=== PATIENT | male | born 1950 | race Caucasian/White ===

== ENCOUNTER 2020-01-26 16:14 | Observation (INO) | payer MEDICARE ==
[~2020-01-26] VITALS: Ht 172.7 cm; Wt 98.4 kg
--- NOTE | 2020-01-26 16:46 | Emergency Department Note ---
History of Present Illnes History of Present Illness Chief Complaint: Abdominal Complaints History of Present Illness This is a 69 year old male arrives to the ED with complaints of dark stools, and low blood pressure per his PCP Dr. Mendieta. Patient states this has happened to him before, however, never required a blood transfusion. Patient states his last colonoscopy was a year and half ago unaware of findings. Patient denies any pain findings currently. Patient states he had a guaiac done at Dr. Kay office that was positive for blood. Historian: Patient Arrival Mode: Car Ad Clerk Required: No Onset (how long ago): day(s) Radiation: non-radiation Severity: mild Duration (how long): day(s) Chronicity: recurrent Context: recent illness, recent surgery Relieving factors: none Exacerbating factors: none (AYDEN ORTIZ DO) Past Medical/Family History Physician Review I have reviewed the patient's past medical and family history. Any updates have been documented here. (AYDEN ORTIZ DO) Past Medical History Recent Fever: No Clinical Suspicion of Infectio: No New/Unexplained Change in Ment: No Past Medical History: Hypertension, COPD, Anemia, Hyperlipedemia, Chronic Back Pain, Osteoarthritis Past Surgical History: T&A Other Surgery: HEMMORHOIDECTOMY (AYDEN ORTIZ DO) Family History Family history of heart diseas: No (AYDEN ORTIZ DO) Other Last Tetanus: UNKNOWN (AYDEN ORTIZ DO) Review of Systems Review of Systems Constitutional: no symptoms EENTM: no symptoms Cardiovascular: no symptoms Respiratory: no symptoms Gastrointestinal: other (dark stools) Genitourinary: no symptoms Musculoskeletal: no symptoms Neurological: no symptoms Psychological: no symptoms Endocrine: no symptoms Hematological/Lymphatic: no symptoms Review of other systems All other systems reviewed and negative. (AYDEN ORTIZ DO) Physical Exam Related Data Allergies: Coded Allergies: doxycycline (Verified Allergy, Severe, 01/26/20) Triage Vital Signs Vital Signs Date Time Temp Pulse Resp B/P (MAP) Pulse Ox O2 Delivery O2 Flow Rate FiO2 01/26/20 16:32 98.9 52 16 106/67 97 Vital signs reviewed: Yes (AYDEN ORTIZ DO) Physical Exam CONSTITUTIONAL Constitutional: well-developed, well-nourished HENT HENT: normocephalic, atraumatic, oropharynx clear/moist, nose normal HENT L/R: left ext ear normal, right ext ear normal EYES Eyes: PERRL, conjunctivae normal NECK Neck: ROM normal PULMONARY Pulmonary: effort normal, breath sounds normal CARDIOVASCULAR Cardiovascular: regular rhythm, heart sounds normal, capillary refill normal, normal rate GASTROINTESTINAL Abdominal: soft, nontender, bowel sounds normal GENITOURINARY Genitourinary: exam deferred SKIN Skin: warm, dry MUSCULOSKELETAL Musculoskeletal: ROM normal NEUROLOGICAL Neurological: alert, oriented x 3, no gross motor or sensory deficits PSYCHOLOGICAL Psychological: mood/affect normal, judgement normal (SANDHIR, AMBICA, DO) Results Laboratory Lab results reviewed: Yes Laboratory comments Laboratory Tests Test 01/26/20 16:40 White Blood Count 8.29 x10e3/uL (4.8-10.8) Red Blood Count 3.81 x10e6/uL (4.3-5.7) Hemoglobin 11.9 g/dL (14.0-18.0) Hematocrit 37.2 % (38.2-49.6) Mean Corpuscular Volume 97.6 fL (81-99) Mean Corpuscular Hemoglobin 31.2 pg (28-32) Mean Corpuscular Hemoglobin Concent 32.0 g/dL (31-35) Red Cell Distribution Width 13.2 % (11.7-14.4) Platelet Count 149 x10e3/uL (140-360) Neutrophils (%) (Auto) 66.2 % (38.7-80.0) Lymphocytes (%) (Auto) 23.0 % (18.0-39.1) Monocytes (%) (Auto) 7.1 % (4.4-11.3) Eosinophils (%) (Auto) 2.8 % (0.0-6.0) Basophils (%) (Auto) 0.4 % (0.0-1.0) Neutrophils # (Auto) 5.5 (2.1-6.9) Lymphocytes # (Auto) 1.9 (1.0-3.2) Monocytes # (Auto) 0.6 (0.2-0.8) Eosinophils # (Auto) 0.2 (0.0-0.4) Basophils # (Auto) 0.0 (0.0-0.1) Absolute Immature Granulocyte (auto 0.04 x10e3/uL (0-0.1) Sodium Level 141 mmol/L (136-145) Potassium Level 4.6 mmol/L (3.5-5.1) Chloride Level 108 mmol/L (98-107) Carbon Dioxide Level 25 mmol/L (22-29) Anion Gap 12.6 mmol/L (8-16) Blood Urea Nitrogen 40 mg/dL (7-26) Creatinine 2.79 mg/dL (0.72-1.25) Estimat Glomerular Filtration Rate 23 ML/MIN (60-) BUN/Creatinine Ratio 14 (6-25) Glucose Level 72 mg/dL (74-118) Calcium Level 9.1 mg/dL (8.4-10.2) Total Bilirubin 0.4 mg/dL (0.2-1.2) Aspartate Amino Transf (AST/SGOT) 15 IU/L (5-34) Alanine Aminotransferase (ALT/SGPT) 12 IU/L (0-55) Alkaline Phosphatase 76 IU/L (40-150) Creatine Kinase 119 IU/L (30-200) Creatine Kinase MB 2.60 ng/mL (0-5.0) Troponin I 0.005 ng/mL (0-0.300) Total Protein 7.1 g/dL (6.5-8.1) Albumin 4.0 g/dL (3.5-5.0) Globulin 3.1 g/dL (2.3-3.5) Albumin/Globulin Ratio 1.3 (0.8-2.0) (AYDEN ORTIZ, ) Procedures 12 Lead ECG Interpretation Ad Clerk: Interpreted by ED physician Prior RADIATION CONTROL WORKER tracings: reviewed Rhythm: sinus tachycardia QRS axis: normal ST segments normal: Yes Clinical Impression: normal ECG (AYDEN ORTIZ, ) Critical Care Time Subsequent provider I assumed direction of critical care for this patient from another provider of my specialty. (AYDEN ORTIZ, ) Assessment & Plan Assessment & Plan Final Impression: (1) ENCOUNTER FOR SCREENING FOR LOWER GASTROINTESTINAL DISORDER Assessment & Plan CBC, CMP Type and cross Admission for repeat hemoglobin/hematocrit GI consult Patient signed out to Dr. Browning. CT abdomen and pelvis (AYDEN ORTIZ, ) Assessment & Plan 1. Colonic diverticulosis without acute diverticulitis. 2. Focal luminal narrowing with mild soft tissue prominence in a short segment of the sigmoid colon may be related to underdistention and adherent stool, however, consider correlation with direct visualization (colonoscopy). 3. Bilateral renal cysts. 4. Mild aneurysmal dilatation of the proximal abdominal aorta at the level of the hiatus. Signed by: Dr. Elian Luciano M.D. on 01/26/2020 8:40 PM (BECCA GOLDMAN MD) Depart Disposition: ADMITTED Last Vital Signs Date Time Temp Pulse Resp B/P (MAP) Pulse Ox O2 Delivery O2 Flow Rate FiO2 01/26/20 16:32 98.9 52 16 106/67 97 (AYDEN ORTIZ, ) AYDEN ORTIZ DO Jan 26, 2020 16:46 BECCA GOLDMAN MD Jan 26, 2020 20:56
[2020-01-26 17:02] LABS: BASOPHILS % 0.4 % (0.0-1.0); EOSINOPHILS # (AUTO) 0.2 (0.0-0.4); EOSINOPHILS % 2.8 % (0.0-6.0); HEMATOCRIT 37.2 % (38.2-49.6); HEMOGLOBIN 11.9 g/dL (14.0-18.0); LYMPHOCYTES # (AUTO) 1.9 (1.0-3.2); MEAN CORPUSCULAR HEMOGLOBIN 31.2 pg (28-32); MEAN CORPUSCULAR VOLUME 97.6 fL (81-99); MONOCYTES # (AUTO) 0.6 (0.2-0.8); MONOCYTES % 7.1 % (4.4-11.3); NEUTROPHILS # (AUTO) 5.5 (2.1-6.9); NEUTROPHILS % 66.2 % (38.7-80.0); PLATELET COUNT 149 x10e3/uL (140-360); RED BLOOD COUNT 3.81 x10e6/uL (4.3-5.7); RED CELL DISTRIBUTION WIDTH 13.2 % (11.7-14.4)
[2020-01-26 17:21] LABS: ALBUMIN/GLOBULIN RATIO 1.3 (0.8-2.0); ANION GAP 12.6 mmol/L (8-16); CALCIUM 9.1 mg/dL (8.4-10.2); CREATININE, SERUM 2.79 mg/dL (0.72-1.25); POTASSIUM 4.6 mmol/L (3.5-5.1)
[2020-01-26 17:27] LABS: CREATINE KINASE MB 2.6 ng/mL (0-5.0)
[2020-01-26] MEDS ORDERED: SODIUM CHLORIDE 0.9% 1000ML 1,000 ML IV STA (18:37)
[2020-01-26] MEDS ORDERED: OCTREOTIDE ACETATE 0.05 MG/ML AMP IV ONE (18:45)
[2020-01-26] MEDS ORDERED: OCTREOTIDE ACETATE 500 MCG in SODIUM CHLORIDE 0.9% 250ML 249 ML IV ONE (18:45)
--- NOTE | 2020-01-26 19:03 | NUR ---
Seen pt on bed AAOx4, VSS. Ironworker Foreman at bedside to take pt for CT scan procedure.
--- NOTE | 2020-01-26 20:43 | Diagnostic Imaging Report ---
EXAM: CT Abdomen and Pelvis WITHOUT contrast INDICATION: Gastrointestinal bleed. Hypotension. COMPARISON: None. TECHNIQUE: Abdomen and pelvis were scanned utilizing a multidetector helical scanner from the lung base to the pubic symphysis without administration of IV contrast. Absence of intravenous contrast decreases sensitivity for detection of focal lesions and vascular pathology. Coronal and sagittal reformations were obtained. Routine protocol was performed. IV CONTRAST: None. ORAL CONTRAST: None. RADIATION DOSE: Total DLP: 692.31 mGy*cm Estimated effective dose: (DLP x 0.015 x size factor) mSv COMPLICATIONS: None FINDINGS: LINES and TUBES: None. LOWER THORAX: Left basilar subsegmental atelectasis. HEPATOBILIARY: No focal hepatic lesions. No biliary ductal dilation. GALLBLADDER: No radio-opaque stones or sludge. No wall thickening. SPLEEN: No splenomegaly. PANCREAS: No focal masses or ductal dilatation. ADRENALS: No adrenal nodules KIDNEYS/URETERS: No hydronephrosis. 6.6 cm cyst exophytic of the posterior lower pole of the left kidney. 2.1 cm parapelvic cyst in the lower pole of the right kidney on image 32. 1.0 cm cyst exophytic of the lower pole of the right kidney. No stones. GI TRACT: No abnormal distention to suggest bowel obstruction. There are diverticula within the colon without evidence of diverticulitis. There is focal luminal narrowing with mild soft tissue prominence in a short segment of the sigmoid colon as seen on image 46 series 2 which may be related to underdistention and adherent stool, however, consider correlation with direct visualization (colonoscopy). Appendix is normal. PELVIC ORGANS/BLADDER: 5.2 cm prostate is mildly enlarged, and contains coarse calcifications. LYMPH NODES: No lymphadenopathy. VESSELS: There is moderate atherosclerotic disease in the aorta and major arterial branches. Mild aneurysmal dilatation of the aorta at the level of the hiatus measuring 3.3 cm on image 16 series 2. PERITONEUM / RETROPERITONEUM: No free air or fluid. BONES: There are degenerative changes in the lumbar spine with multilevel lower thoracic and upper lumbar Schmorl nodes.. SOFT TISSUES: Unremarkable. IMPRESSION: 1. Colonic diverticulosis without acute diverticulitis. 2. Focal luminal narrowing with mild soft tissue prominence in a short segment of the sigmoid colon may be related to underdistention and adherent stool, however, consider correlation with direct visualization (colonoscopy). 3. Bilateral renal cysts. 4. Mild aneurysmal dilatation of the proximal abdominal aorta at the level of the hiatus. Signed by: Dr. Elian Luciano M.D. on 01/26/2020 8:40 PM
[2020-01-26 22:43] VITALS: BP 151/78
[2020-01-26 23:00] VITALS: BP 151/78
[2020-01-26 23:22] VITALS: BP 151/78
[2020-01-27] VITALS: BP 137/66
[2020-01-27] MEDS ORDERED: PROAIR HFA INH8.5 GM INH (00:50)
[2020-01-27 04:00] VITALS: BP 148/73
[2020-01-27] MEDS ORDERED: ANORO ELLIPTA1 EACH INH (04:57)
--- NOTE | 2020-01-27 06:04 | NUR ---
SPOKE TO DR. NI AT THIS TIME REGARDING PATIENT C/O HEADACHE, NAUSEA AND VOMITING. NEW ORDERS RECEIVED FOR TYLENOL 650 PO Q6H PRN, ZOFRAN 4MG IV Q6H PRN, CBC AND BMP.
[2020-01-27] MEDS: ONDANSETRON HCL INJ 2MG/ML 2ML 2 MG/ML VIAL IV PRN ×2 (06:20→09:13)
[2020-01-27] MEDS: ACETAMINOPHEN 325 MG TAB PO PRN ×2 (06:45→09:13)
[2020-01-27 07:41] LABS: BASOPHILS # (AUTO) 0.1 (0.0-0.1); BASOPHILS % 0.6 % (0.0-1.0); EOSINOPHILS # (AUTO) 0.1 (0.0-0.4); EOSINOPHILS % 1.1 % (0.0-6.0); HEMATOCRIT 40.4 % (38.2-49.6); LYMPHOCYTES # (AUTO) 1.3 (1.0-3.2); LYMPHOCYTES % 14.4 % (18.0-39.1); MEAN CORPUSCULAR HEMOGLOBIN 31.2 pg (28-32); MEAN CORPUSCULAR HGB CONC 32.2 g/dL (31-35); MEAN CORPUSCULAR VOLUME 96.9 fL (81-99); MONOCYTES # (AUTO) 0.4 (0.2-0.8); MONOCYTES % 4.4 % (4.4-11.3); NEUTROPHILS # (AUTO) 6.9 (2.1-6.9); NEUTROPHILS % 78.8 % (38.7-80.0); PLATELET COUNT 147 x10e3/uL (140-360); RED BLOOD COUNT 4.17 x10e6/uL (4.3-5.7); RED CELL DISTRIBUTION WIDTH 12.7 % (11.7-14.4)
[2020-01-27 08:00] LABS: CALCIUM 9.4 mg/dL (8.4-10.2); CREATININE, SERUM 2.25 mg/dL (0.72-1.25)
[2020-01-27 08:31] VITALS: BP 177/95
[2020-01-27 08:55] VITALS: BP 138/73
[2020-01-27] MEDS ORDERED: PANTOPRAZOLE 40 MG 10ML VIAL IV SCH (09:00)
[2020-01-27] MEDS ORDERED: SOD POLYSTYRENE SULFONATE SUSP 15 GM/60 ML BTL PO ONE (10:00)
[2020-01-27] MEDS ORDERED: SODIUM CHLORIDE 0.9% 1000ML 1,000 ML IV SCH (13:00)
[2020-01-27] MEDS ORDERED: ALBUTEROL SULFATE HFA 8GM INHALATION AEROSOL INH PRN (13:00)
[2020-01-27 13:06] VITALS: BP 171/91
[2020-01-27] MEDS ORDERED: CLONIDINE HCL 0.1 MG TAB PO PRN (13:15)
--- NOTE | 2020-01-27 14:00 | NUR ---
pt had bm. no blood visible in stool.
[2020-01-27 14:17] LABS: ANION GAP 13.9 mmol/L (8-16); CALCIUM 9.1 mg/dL (8.4-10.2); CREATININE, SERUM 2.09 mg/dL (0.72-1.25); POTASSIUM 4.9 mmol/L (3.5-5.1)
--- NOTE | 2020-01-27 23:20 | History and Physical ---
PRIMARY CARE PHYSICIAN: Dr. Mendieta with [facility]. CHIEF COMPLAINT: Dark stool. HISTORY OF PRESENT ILLNESS: This is a 69-year-old male with past medical history of hypertension, high cholesterol, and chronic pain, presented to the ER with complaints of dark stools. He denies any chest pain, shortness of breath, weakness. He reports had gone to see a primary care doctor for dark stool. His stool was a little occult, was positive in office, and his blood pressure was low, so he was sent to the ER for further evaluation. He upon arrival to the ER, hemoglobin was 11.9, asymptomatic. No abdominal pain, was admitted under observation for further evaluation. He reports, he had a colonoscopy a few years ago, which showed some polyps and was removed and reports he has a colonoscopy is scheduled to be done this month. In the ER, CT of abdomen and pelvis showed colonic diverticulosis with without acute diverticulitis, bilateral renal cyst, and mild aneurysm dilation of the proximal abdominal aorta at the level of the hiatus. PAST MEDICAL HISTORY: 1. Hypertension. 2. High cholesterol. 3. Arthritis. PAST SURGICAL HISTORY: Hemorrhoidectomy 15 years ago and tonsillectomy. FAMILY MEDICAL HISTORY: Denies any family history. SOCIAL HISTORY: He reports smoking a pack per two days. He drinks alcohol occasionally and denies illicit drug use. ALLERGIES: DOXYCYCLINE. REVIEW OF SYSTEMS: GENERAL: No weakness. LUNGS: No shortness of breath. No cough. CARDIOVASCULAR: No chest pain. GI: No nausea, vomiting, constipation or diarrhea. NEURO: No dizziness. MUSCULOSKELETAL: No edema. SKIN: No rash. PHYSICAL EXAMINATION: VITAL SIGNS: Temperature 97.7, pulse is 71, respirations 17, blood pressure 171/91, pulse ox is 98% on room air. GENERAL: No acute distress. HEENT: Normocephalic, atraumatic. NECK: Supple. LUNGS: Clear to auscultation. CARDIOVASCULAR: Regular rate and rhythm. GI: Soft and nontender. NEUROLOGIC: Alert, awake, and oriented x3. MUSCULOSKELETAL: Moves all extremities. SKIN: Dry. PSYCH: Calm. LABORATORY DATA: WBC 8.29, hemoglobin 13, hematocrit 40, and platelet 141. Sodium 141, potassium 4.6, BUN 40, creatinine 2.79, estimated GFR 23, glucose 72, AST 15, ALT 12, CK 119. IMAGING: CT abdomen and pelvis chronic diverticulosis without acute diverticulitis and bilateral renal cysts as mentioned in the HPI. IMPRESSION AND PLAN: 1. Dark stool, likely due to GI bleed. Hemoglobin is stable at 13.0. No diverticulitis on CT. No abdominal pain or overt bleeding. We will follow up outpatient for further GI workup. 2. Acute kidney injury versus chronic kidney injury. 3. Creatinine improved with IV fluid hydration to 2.09 today. Reports had renal ultrasound with PCP sometime ago, which he was told will be monitored. He is advised to follow up with oxyhydrogen welder at [facility] for close monitoring. 4. Hypertension. We will resume home medications. 5. Hyperkalemia. Kayexalate 15 g given x1. Recheck K level is 4.9. 6. High cholesterol. Continue statin. 7. Chronic pain. May resume medication. He is advised to stop taking NSAIDs due to his renal function and follow up with his PCP. 8. Deep vein thrombosis prophylaxis. No chemical anticoagulation due to possible GI bleed. PLAN: To discharge home, hemoglobin is stable at 13, advised to follow up with PCP and GI for further workup. He has a colonoscopy planned this month but may need to have it sooner. Also advised to follow up with Nephrology. We will update PCP. Dictated by AISSATOU Sinclair Jarrett Obregon MD MY/MODL /[id number] The patient was seen and examined on 01/27/20. Agree with the findings and plan as documented by AISSATOU Rodriguez. MTDD
--- NOTE | 2020-01-28 22:51 | Discharge Summary ---
PRIMARY CARE PHYSICIAN: Dr. Mendieta with [facility]. FINAL DISCHARGE DIAGNOSES: 1. Gastrointestinal bleed with stable hemoglobin. 2. Acute kidney injury. 3. Hypertension. 4. Hyperkalemia. 5. High cholesterol. 6. Chronic pain. CONSULTANTS: None. PROCEDURES: None. HISTORY: Per HPI. HOSPITAL COURSE: This is a 69-year-old male, who presented to the ER with complaints of dark stools. His hemoglobin was stable at 11.9 asymptomatic. Repeat hemoglobin was 13.0. He denies any abdominal pain or any further bloody stools. CT abdomen and pelvis showed colonic diverticulosis without acute diverticulitis. The patient reports he has seen his PCP and is scheduled for colonoscopy later this month. He wants to follow up as an outpatient for colonoscopy as he has no signs and symptoms of acute anemia. We will discharge home to follow up with Dr. Mendieta, his laundry helper and GI for sooner colonoscopy. PHYSICAL EXAMINATION: VITAL SIGNS: Temperature 97.7, pulse is 71, respirations 17, blood pressure 171/91, pulse ox is 98% on room air. GENERAL: No acute distress. HEENT: Normocephalic, atraumatic. CARDIOVASCULAR: Regular rate and rhythm. GI: Soft and nontender. NEUROLOGIC: Alert, awake, and oriented x3. MUSCULOSKELETAL: Moves all extremities. CONDITION AT DISCHARGE: Improved and stable. DISCHARGE MEDICATIONS: See medication reconciliation list. FOLLOWUP: Follow up with Dr. Mendieta, GI and Nephrology in 2 weeks. TIME SPENT: Total discharge time is 33 minutes. Dictated by AISSATOU Sinclair Jarrett Obregon MD MY/MODL /[id number] Patient is seen and examined on 01/27/20. Agree with the findings and plan as documented by AISSATOU Rodriguez. XANDER
== END 2020-01-27 16:00 | disposition home or self-care (01) ==
LOC: ER 16:14 → ERHOLD 18:03 → INTOOBSV 18:03 → MED/SURG 22:32
PROVIDERS: ADMIT Internal Medicine; ATTEND Internal Medicine
DX: K92.2 Gastrointestinal hemorrhage, unspecified (principal); N17.9 Acute kidney failure, unspecified; E87.5 Hyperkalemia; E78.00 Pure hypercholesterolemia, unspecified; G89.29 Other chronic pain; I12.9 Hypertensive chronic kidney disease with stage 1 through stage 4 chronic kidney disease, or unspecified chronic kidney disease; N18.9 Chronic kidney disease, unspecified
CPT/HCPCS: 36415 ×2; 74176; 80048; 80053; 82550; 82553; 84484; 85025 ×2; 86850; 86900; 87635; 93005; 99284; C9113 ×2; G0378 ×2; J2353; J2354; J2405; J7030; J7050